=== PATIENT | male | born 1975 ===

== ENCOUNTER → 2025-08-23 | Outpatient (CLI) | payer OTHER ==
--- NOTE | 2025-08-24 10:45 | HMCIMG ---
EXAM: CT Cardiac calcium scoring. CLINICAL HISTORY: CAD screening. TECHNIQUE: Thin collimated axial CT cardiac images were obtained. A CT scan is done according to ALARA (As Low As Reasonably Achievable). CONTRAST: None. COMPARISON: None provided. FINDINGS: Calcium Score: VESSEL Number of lesions Volume mm3 Equi. Mass/mg Calcium score LM 0 00.00 00.00 00.00 LAD 1 2.5 --.-- 4.0 LCX 0 00.00 00.00 00.00 RCA 0 00.00 00.00 00.00 Total 1 2.5 --.-- 4.0 IMPRESSION: The calcium score is 4. This places the patient above 25th percentile in comparison to a group of patients asymptomatic for coronary artery disease with the same age and gender. This means that >25% of males aged 50-54 have a calcium score that is lower than the patient's. /[place]
== END | disposition home or self-care (01) ==
LOC: RAH 15:04
PROVIDERS: ATTEND Internal Medicine Nephrology
DX: Z13.6 Encounter for screening for cardiovascular disorders (principal); I25.10 Atherosclerotic heart disease of native coronary artery without angina pectoris
CPT/HCPCS: 75571